=== PATIENT | female | born 1945 | race Caucasian/White ===

== ENCOUNTER 2022-06-24 01:01 | Emergency (ER) | payer BC, MEDICARE ==
[~2022-06-24] VITALS: Ht 160 cm; Wt 55.5 kg
[~2022-06-24 01:01] MED LIST: LOSA25TA26 PO; METF-414 PO; PROT40 PO; SIMV-43 PO
[2022-06-24 01:03] VITALS: BP 173/74
== END 2022-06-24 04:04 | disposition left against medical advice (07) ==
LOC: ER 01:14
DX: Z53.21 Procedure and treatment not carried out due to patient leaving prior to being seen by health care provider (principal); I10 Essential (primary) hypertension; E11.9 Type 2 diabetes mellitus without complications; E78.5 Hyperlipidemia, unspecified; Z98.890 Other specified postprocedural states

== ENCOUNTER 2023-09-29 01:34 | Emergency (ER) | payer BC, MEDICARE ==
[~2023-09-29] VITALS: Ht 160 cm; Wt 51.0 kg
[2023-09-29 01:53] VITALS: BP 170/71; PULSE 79; RESP 16; TEMP 98; O2SAT 100
== END 2023-09-29 03:49 | disposition left against medical advice (07) ==
LOC: ER 01:34
DX: I10 Essential (primary) hypertension (principal); Z53.21 Procedure and treatment not carried out due to patient leaving prior to being seen by health care provider
CPT/HCPCS: 99281

== ENCOUNTER 2023-09-29 16:42 | Emergency (ER) | payer BC, MEDICARE ==
[~2023-09-29] VITALS: Ht 160 cm; Wt 52.2 kg
[2023-09-29 17:09] VITALS: O2SAT 100
[2023-09-29 18:22] LABS: BASOPHILS % 1.1 % (0.0-2.0); EOSINOPHILS % 1.2 % (0.0-5.0); HEMATOCRIT. 37.7 % (36.0-48.0); HEMOGLOBIN. 12.4 g/dL (12.0-16.0); LYMPHOCYTES % 27.5 % (20.0-50.0); MEAN CORPUSCULAR HEMOGLOBIN 27.6 pg (28.0-32.0); MEAN CORPUSCULAR VOLUME 83.7 fL (81.0-99.0); MEAN PLATELET VOLUME 8.8 fl (7.4-10.4); MONOCYTES % 8.5 % (2.0-8.0); NEUTROPHILS % 61.7 % (40.0-76.0); PLATELET 250 x1000/uL (130-400); RED CELL DISTRIBUTION WIDTH 14.5 % (11.6-14.6); WHITE BLOOD COUNT 6.2 x1000/uL (4.5-11.0)
[2023-09-29 18:44] LABS: ALANINE AMINOTRANSFERASE 35 IU/L (10-49); ALBUMIN 4.5 g/dL (3.2-4.8); ASPARTATE AMINOTRANSFERASE 34 IU/L (<34); CALCIUM 9.7 mg/dL (8.7-10.4); CARBON DIOXIDE 24 mEq/L (21-32); CHLORIDE 104 mEq/L (98-107); CREATININE 0.9 mg/dL (0.6-1.0); GLUCOSE 96 mg/dL (70-105); POTASSIUM 3.9 mEq/L (3.5-5.1); PROTEIN TOTAL 6.8 g/dL (6.0-8.3); SODIUM 135 mEq/L (136-145); UREA NITROGEN BLOOD 18 mg/dL (9-23)
[2023-09-29 18:54] LABS: CLARITY URINE CLEAR (CLEAR); COLOR URINE YELLOW (YELLOW); GLUCOSE URINE 3+ (NEGATIVE); KETONES URINE NEGATIVE (NEGATIVE); LEUKOCYTE ESTERASE URINE 1+ (NEGATIVE); NITRITE URINE NEGATIVE (NEGATIVE); OCCULT BLOOD URINE NEGATIVE (NEGATIVE); PROTEIN URINE NEGATIVE (NEGATIVE); SPECIFIC GRAVITY URINE 1.009 (1.005-1.030); UROBILINOGEN URINE 0.2 E.U./dL (0.2-1.0)
[2023-09-29 19:33] LABS: BACTERIA URINE NONE SEEN; RBC URINE NONE SEEN /hpf (0-2); SQUAMOUS EPITHELIAL CELL URINE RARE /lpf (RARE/1+)
[2023-09-29 20:23] LABS: TROPONIN I HIGH SENSITIVITY 19 ng/L (3.0-34)
[2023-09-29 21:05] VITALS: BP 107/44; PULSE 53; RESP 16; TEMP 98.3
== END 2023-09-29 21:05 | disposition home or self-care (01) ==
LOC: ER 16:42
DX: I10 Essential (primary) hypertension (principal); R07.89 Other chest pain; E11.9 Type 2 diabetes mellitus without complications; K21.9 Gastro-esophageal reflux disease without esophagitis; Z79.899 Other long term (current) drug therapy; Z20.822 Contact with and (suspected) exposure to COVID-19
CPT/HCPCS: 36415; 71045; 80053; 81003; 84484; 85025; 87426; 87804; 93005; 99285

== ENCOUNTER 2023-11-15 02:59 | Emergency (ER) | payer BC ==
[~2023-11-15] VITALS: Ht 160 cm; Wt 51.0 kg
[2023-11-15 03:02] VITALS: O2SAT 100
[2023-11-15 03:03] VITALS: BP 157/72; PULSE 78; RESP 18; TEMP 98
== END 2023-11-15 06:17 | disposition left against medical advice (07) ==
LOC: ER 02:59
DX: I10 Essential (primary) hypertension (principal); Z53.21 Procedure and treatment not carried out due to patient leaving prior to being seen by health care provider
CPT/HCPCS: 99281